=== PATIENT | male | born 1965 | race Caucasian/White ===

== ENCOUNTER 2023-05-22 10:54 | Day surgery (SDC) | payer MEDICAID ==
[2023-05-20 10:53] LABS: BILIRUBIN,URINE NEGATIVE (Neg); CLARITY,URINE CLEAR (Clear); COLOR,URINE YELLOW (Yellow); GLUCOSE, URINE NEGATIVE (Neg); KETONES,URINE NEGATIVE (Neg); LEUKOCYTE ESTERASE ,URINE NEGATIVE (Neg); NITRITES, URINE NEGATIVE (Neg); OCCULT BLOOD,URINE NEGATIVE (Neg); PH,URINE 5.5 (4.8-8.0); PROTEIN,URINE NEGATIVE (Neg); UROBILINOGEN,URINE 0.2 E.U/dL (0.2-1.0)
[2023-05-20 10:54] LABS: UA COLLECTION TYPE CLN CATCH MIDSTREAM
[2023-05-20 10:58] LABS: BASOPHILS # (AUTO) 0.1 X10'3 (0-0.2); EOSINOPHILS # (AUTO) 0.1 X10'3 (0-0.9); EOSINOPHILS % (AUTO) 1.3 % (0-6); LYMPHOCYTES # (AUTO) 1.4 X10'3 (1.1-4.8); LYMPHOCYTES % (AUTO) 23.5 % (21-51); MEAN CORPUSCULAR HEMOGLOBIN 30.6 PG (27.0-31.0); MEAN CORPUSCULAR HGB CONC 34.8 g/dL (33.0-36.5); MEAN CORPUSCULAR VOLUME 88.1 FL (78-98); MEAN PLATELET VOLUME 8.4 FL (7.4-10.4); MONOCYTES # (AUTO) 0.6 X10'3 (0-0.9); MONOCYTES % (AUTO) 9.7 % (2-12); NEUTROPHILS % (AUTO) 64.5 % (42-75); PRE OP HEMATOCRIT 49.2 % (42.0-52.0); PRE OP HEMOGLOBIN 17.1 g/dL (14.0-17.9); PRE OP PLATELET COUNT 180 X10'3 (140-440); PRE OP WHITE BLOOD COUNT 6.1 10'3 (4.8-10.8); RED BLOOD COUNT 5.58 X10'6 (4.70-6.10); RED CELL DISTRIBUTION WIDTH 13.7 % (11.5-14.5)
[2023-05-20 11:09] LABS: ALBUMIN 3.7 G/DL (3.4-5.0); ALBUMIN/GLOBULIN RATIO 1.1 (1.1-1.5); ALKALINE PHOSPHATASE 35 IU/L (46-116); BLOOD UREA NITROGEN 18 MG/DL (7-18); BUN/CREATININE RATIO 15.1 (10.0-20.0); CALCIUM 9.2 MG/DL (8.5-10.1); CHLORIDE 105 MMOL/L (99-107); CREATININE 1.19 MG/DL (0.60-1.10); PRE OP ALT 33 U/L (30-65); PRE OP ANION GAP 9 (8-16); PRE OP AST 19 U/L (10-37); PRE OP BILIRUB, TOTAL 0.5 MG/DL (0.0-1.0); PRE OP GLUCOSE 98 MG/DL (70-104); PRE OP POTASSIUM 4.2 MMOL/L (3.4-5.1); PRE OP SODIUM 141 MMOL/L (135-145); TOTAL CARBON DIOXIDE 27.3 MMOL/L (24-32); TOTAL PROTEIN 7.1 G/DL (6.4-8.2); eGFR 63 ML/MIN
[~2023-05-22] VITALS: Ht 190.5 cm; Wt 154.7 kg
[2023-05-22] VITALS (11 sets, daily range): BP systolic 118–165; BP diastolic 66–100; PULSE 60–81; RESP 11–18; TEMP 97.6; O2SAT 93–98
[~2023-05-22 10:54] MED LIST: ANAS1TAB10 PO; TEST200V33 IM; ceFAZolin inj. 3,000 MG in normal saline 100ml IV soln 100 ML IV ONE; famotidine 20mg tablet PO ONE; ringers solution, lacted 1,000 ML IV SCH
[2023-05-22] MEDS ORDERED: hydrALAZINE 20mg/ml inj. IV PRN (12:00)
[2023-05-22] MEDS ORDERED: morphine 2 MG/ML inj. syringe IV PRN (12:00)
[2023-05-22] MEDS ORDERED: ondansetron/PF 4mg/2ml inj IV PRN (12:00)
[2023-05-22] MEDS ORDERED: meperidine/PF 25mg/ml syringe IV PRN ×3 (12:00)
[2023-05-22] MEDS ORDERED: ketorolac trometh. 30mg/ml inj. IV ONE (12:00)
[2023-05-22] MEDS ORDERED: labetalol 20mg/4ml (5mg/ml) syringe IV PRN (12:00)
[2023-05-22] MEDS ORDERED: acetaminophen 1,000mg/100ml IV 100 ML IV PRN (12:00)
[2023-05-22] MEDS ORDERED: proCHLORperazine 10 MG/2 ml inj IV PRN (12:00)
[2023-05-22] MEDS ORDERED: ringers solution, lacted 1,000 ML IV SCH (12:00)
[2023-05-22] MEDS ORDERED: morphine 4 MG/ML inj SYRINge IV PRN (12:00)
[2023-05-22] MEDS ORDERED: BUPIVAcaine/PF 2.5 mg/ml (0.25%) 30ml vial ONE (14:01)
[2023-05-22] MEDS ORDERED: sevoflurane 250ml liquid IH ONE (14:15)
[2023-05-22] MEDS ORDERED: midazolam 1 mg/ML 2ml injection ONE (14:23)
[2023-05-22] MEDS ORDERED: fentaNYL /PF 50mcg/ml 5ml ampule ONE (14:24)
[2023-05-22] MEDS ORDERED: propofol inj 20 ML IV ONE ×2 (14:33)
[2023-05-22] MEDS ORDERED: rocuronium 10mg/ml inj IV ONE (14:33)
[2023-05-22] MEDS ORDERED: LIDOcaine 2% (20mg/ml) 5ml vial ONE (14:33)
[2023-05-22] MEDS ORDERED: dexamethasone sod phosphate 4mg/ml inj. ONE (14:34)
[2023-05-22] MEDS ORDERED: ondansetron/PF 4mg/2ml inj ONE (14:34)
[2023-05-22] MEDS ORDERED: BUPIVAcaine/PF 2.5 mg/ml (0.25%) 30ml vial IJ ONE (14:57)
[2023-05-22] MEDS ORDERED: neostigmine methylsulfate 1 MG/ML 10ml vial ONE (16:29)
[2023-05-22] MEDS ORDERED: glycopyrrolate 0.2mg/ml inj ONE (16:29)
[2023-05-22] MEDS ORDERED: albuterol 60 PUFF/8GM Inhaler (90mcg/1 puff) IH ONE (16:32)
--- NOTE | 2023-05-22 16:44 | NUR ---
Received from OR via , accompanied by Anesthesiologist DR PAYNE and report given by Anesthesiolgist.PT SLEEPING BUT WAKES TO VOICE, MOVING EXT X 4,3 LAP SITES WITH DERMABOND CD, PIV RIGHT HAND 20G WITH LR, MEDICATION GIVEN FOR PAIN, VSS
[2023-05-22] MEDS ORDERED: HYDROcodone/acetaminophen 5mg/325mg tablet PO ONE (17:30)
--- NOTE | 2023-05-22 18:14 | NUR ---
PT AWAKE, ALERT, UP TO DRESS AND VOID INDEPEN'LY, NORCO GIVEN PRIOR TO DISCHARGE, IV REMOVED, LAP SITES X 3 CD, TRE FLUIDS, PT MEETS DISCHARGE CRITERIA. TRANSPORTED TO CAR VIA W/C. PT SAFELY TRANSFERRED INTO CAR.
== END 2023-05-22 18:14 | disposition home or self-care (01) ==
LOC: PAS 10:54
PROVIDERS: ATTEND Surgery
DX: K40.90 Unilateral inguinal hernia, without obstruction or gangrene, not specified as recurrent (principal); G43.909 Migraine, unspecified, not intractable, without status migrainosus; E66.9 Obesity, unspecified; Z68.41 Body mass index [BMI] 40.0-44.9, adult; F17.220 Nicotine dependence, chewing tobacco, uncomplicated; Z87.442 Personal history of urinary calculi; Z79.899 Other long term (current) drug therapy
CPT/HCPCS: 36415; 49650; 80053; 81003; 82948; 85025; 93005; C1781; J0131; J0690; J1100; J1885; J2175; J2250; J2405; J2704; J2710; J3010; J3490; J7120; S2900; Z7506; Z7508; Z7512; A4215; A4618; C1758

== ENCOUNTER 2023-08-07 08:33 | Inpatient (IN) | payer MEDICAID ==
[2023-08-05 10:51] LABS: BILIRUBIN,URINE NEGATIVE (Neg); CLARITY,URINE CLEAR (Clear); COLOR,URINE YELLOW (Yellow); GLUCOSE, URINE NEGATIVE (Neg); KETONES,URINE NEGATIVE (Neg); LEUKOCYTE ESTERASE ,URINE NEGATIVE (Neg); NITRITES, URINE NEGATIVE (Neg); OCCULT BLOOD,URINE NEGATIVE (Neg); PROTEIN,URINE NEGATIVE (Neg); UROBILINOGEN,URINE 0.2 E.U/dL (0.2-1.0)
[2023-08-05 10:55] LABS: BASOPHILS % (AUTO) 0.9 % (0-1); EOSINOPHILS # (AUTO) 0.1 X10'3 (0-0.9); EOSINOPHILS % (AUTO) 1.7 % (0-6); LYMPHOCYTES # (AUTO) 1.2 X10'3 (1.1-4.8); MEAN CORPUSCULAR HEMOGLOBIN 30.1 PG (27.0-31.0); MEAN CORPUSCULAR HGB CONC 34.3 g/dL (33.0-36.5); MEAN CORPUSCULAR VOLUME 87.6 FL (78-98); MEAN PLATELET VOLUME 8.4 FL (7.4-10.4); MONOCYTES # (AUTO) 0.6 X10'3 (0-0.9); NEUTROPHILS # (AUTO) 3.4 X10'3 (1.8-7.7); NEUTROPHILS % (AUTO) 63.4 % (42-75); PRE OP HEMATOCRIT 49.2 % (42.0-52.0); PRE OP HEMOGLOBIN 16.9 g/dL (14.0-17.9); PRE OP PLATELET COUNT 184 X10'3 (140-440); PRE OP WHITE BLOOD COUNT 5.4 10'3 (4.8-10.8); RED BLOOD COUNT 5.62 X10'6 (4.70-6.10); RED CELL DISTRIBUTION WIDTH 14.2 % (11.5-14.5); UA COLLECTION TYPE CLN CATCH MIDSTREAM
[2023-08-05 11:11] LABS: ALBUMIN 3.9 G/DL (3.4-5.0); ALBUMIN/GLOBULIN RATIO 1.2 (1.1-1.5); ALKALINE PHOSPHATASE 45 IU/L (46-116); BLOOD UREA NITROGEN 15 MG/DL (7-18); BUN/CREATININE RATIO 12.7 (10.0-20.0); CALCIUM 9.3 MG/DL (8.5-10.1); CHLORIDE 101 MMOL/L (99-107); CREATININE 1.18 MG/DL (0.60-1.10); PRE OP ALT 32 U/L (30-65); PRE OP ANION GAP 6 (8-16); PRE OP AST 29 U/L (10-37); PRE OP BILIRUB, TOTAL 0.8 MG/DL (0.0-1.0); PRE OP GLUCOSE 98 MG/DL (70-104); PRE OP POTASSIUM 3.9 MMOL/L (3.4-5.1); PRE OP SODIUM 137 MMOL/L (135-145); TOTAL CARBON DIOXIDE 30.3 MMOL/L (24-32); TOTAL PROTEIN 7.2 G/DL (6.4-8.2); eGFR 64 ML/MIN
[2023-08-07] VITALS (29 sets, daily range): BP systolic 129–172; BP diastolic 69–117; PULSE 73–98; RESP 10–19; TEMP 98.3–98.9; O2SAT 91–100
[~2023-08-07] VITALS: Ht 190.5 cm; Wt 156.5 kg
[2023-08-07] MEDS ORDERED: BUPIVAcaine/PF 2.5mg/ml (0.25%) 10ml vial ONE ×2 (11:00→14:18)
[2023-08-07] MEDS ORDERED: BUPIVAcaine/PF 2.5 mg/ml (0.25%) 30ml vial IJ ONE (12:13)
[2023-08-07] MEDS ORDERED: neostigmine methylsulfate 1 MG/ML 10ml vial ONE (13:12)
[2023-08-07] MEDS ORDERED: LIDOcaine 2% (20mg/ml) 5ml vial ONE (13:12)
[2023-08-07] MEDS ORDERED: ketorolac trometh. 30mg/ml inj. ONE (13:12)
[2023-08-07] MEDS ORDERED: rocuronium 10mg/ml inj IV ONE ×2 (13:12→13:33)
[2023-08-07] MEDS ORDERED: sevoflurane 250ml liquid IH ONE (13:12)
[2023-08-07] MEDS ORDERED: glycopyrrolate 0.2mg/ml inj ONE (13:12)
[2023-08-07] MEDS ORDERED: ondansetron/PF 4mg/2ml inj ONE (13:12)
[2023-08-07] MEDS ORDERED: midazolam 1 mg/ML 2ml injection ONE (13:21)
[2023-08-07] MEDS ORDERED: fentaNYL /PF 50mcg/ml 5ml ampule ONE (13:22)
[2023-08-07] MEDS ORDERED: propofol inj 20 ML IV ONE (13:33)
[2023-08-07] MEDS ORDERED: dexamethasone sod phosphate 4mg/ml inj. ONE (13:37)
[2023-08-07] MEDS ORDERED: ePHEDrine 50MG/ML INJ. ONE (14:16)
[2023-08-07] MEDS ORDERED: morphine 10mg/ml inj. ONE (15:56)
[2023-08-07] MEDS ORDERED: sugammadex 200mg/2ml injection IV ONE (16:01)
[2023-08-07] MEDS ORDERED: morphine 2 MG/ML inj. syringe IV PRN (16:20)
[2023-08-07] MEDS ORDERED: ondansetron/PF 4mg/2ml inj IV PRN (16:20)
[2023-08-07] MEDS ORDERED: ringers solution, lacted 1,000 ML IV SCH ×2 (16:20→17:30)
[2023-08-07] MEDS ORDERED: meperidine/PF 25mg/ml syringe IV PRN ×3 (16:20)
[2023-08-07] MEDS ORDERED: enalaprilat dihydrate 2.5mg/2ml vial IV PRN (16:20)
[2023-08-07] MEDS ORDERED: labetalol 20mg/4ml (5mg/ml) syringe IV PRN (16:20)
[2023-08-07] MEDS ORDERED: proCHLORperazine 10 MG/2 ml inj IV PRN (16:20)
[2023-08-07] MEDS ORDERED: morphine 4 MG/ML inj SYRINge IV PRN (16:20)
[2023-08-07] MEDS ORDERED: acetaminophen 1,000mg/100ml IV 100 ML IV ONE (16:24)
--- NOTE | 2023-08-07 17:16 | NUR ---
Received from OR via honey, accompanied by Anesthesiologist and report given by Varsha Anesthesiologist. PATIENT waking up, DENIES PAIN, V/S WNL, SCD ON , PIV 20G Right wrist, DERMABONDED 4 LAPS SITES CLOSED CDI TO ABDOMEN. Right scrotum dermabonded CDI. Addendum: 08/07/23 at 1729 by Dylan Ford RN Amended: Links added.
[2023-08-07] MEDS ORDERED: naloxone 0.4 mg/ml inj IV PRN (17:30)
[2023-08-07] MEDS: HYDROmorph/NS 0.2 mg/ml PCA 100 ML IV SCH ×4 (18:21→23:00)
--- NOTE | 2023-08-07 19:42 | NUR ---
PATIENT HAS MET ALL CRITERIA FOR TRANSFER TO ORTHO FLOOR. VSS. DRESSINGS INTACT. BED LOW, CALL LIGHT PRESENT AND 2 RAILS UP. RN PRESENT TO ACCEPT CARE OF PATIENT AND REPORT HAS BEEN CALLED. ALL QUESTIONS ANSWERED TO ACCEPTING RN. Addendum: 08/07/23 at 2002 by Dylan Ford RN Amended: Links added.
--- NOTE | 2023-08-07 20:00 | NUR ---
RECIEVED PT FROM RECOVERY ROOM VIA [facility] AND TRANSFERRED TO BED AND MADE HIM COMFORTABLE.
[2023-08-08 00:30] VITALS: BP 129/77
[2023-08-08] MEDS: HYDROmorph/NS 0.2 mg/ml PCA 100 ML IV SCH ×6 (01:00→11:00)
[2023-08-08 02:00] VITALS: BP 136/79; PULSE 111; TEMP 98.4; O2SAT 94
[2023-08-08 04:30] VITALS: BP 137/80
[2023-08-08 06:00] VITALS: BP 137/87; PULSE 103; RESP 17; TEMP 98.3; O2SAT 97
--- NOTE | 2023-08-08 06:45 | NUR ---
Problems reprioritized. Patient report given, questions answered & plan of care reviewed with SAI MENON.
--- NOTE | 2023-08-08 06:50 | NUR ---
Patient in room ORTHO 4023. I have received report from Noreen and had the opportunity to ask questions and assume patient care.
[2023-08-08 08:00] VITALS: RESP 17; O2SAT 97
[2023-08-08 10:00] VITALS: BP 152/86; PULSE 95; RESP 18; TEMP 97.6; O2SAT 97
--- NOTE | 2023-08-08 11:00 | NUR ---
Patient discharged home today. Son at bedside and participated in the discharge. All discharge instructions were explained and all questions were answered. IV removed and canula intact. Patient a&ox4 and dressed himself. Patient was wheeled downstairs and helped into private vehicle. Patient left the facility with son.
--- NOTE | 2023-08-08 11:43 | NUR ---
school librarian dilaudid waste witnessed by Kimberly RN at 1142. waste of 90ml dilaudid
[2023-08-08] MEDS ORDERED: PCA WASTE DOCUMENTATION 1 MG ML MC SCH (11:50)
--- NOTE | 2023-08-08 11:51 | NUR ---
EMPLOYMENT COORDINATOR documentation: I have reviewed and agree with all interventions, assessments performed and documented by Leti GIBBS. patient reported passing flatus and tolerating diet
--- NOTE | 2023-08-08 11:51 | NUR ---
SAI Medication Administration: For this medication-pass time frame, all medication were reviewed, dispensed, administered and documented per hospital policy by Leti GIBBS.
== END 2023-08-08 11:25 | disposition home or self-care (01) | DRG 228 ==
LOC: PAS 08:33 → ORTHO 4S 17:35
PROVIDERS: ADMIT Surgery; ATTEND Surgery
PROC: 0YU50JZ Supplement Right Inguinal Region with Synthetic Substitute, Open Approach (ICD-10-PCS; principal; 2023-08-07 13:12)
DX: K40.91 Unilateral inguinal hernia, without obstruction or gangrene, recurrent (principal); D17.9 Benign lipomatous neoplasm, unspecified
CPT/HCPCS: 36415; 80053; 81003; 82948; 85025; A4215; A4615; A4618; C1758; C1781; G0378; J0131; J0690; J1100; J1170; J1885; J2250; J2274; J2405; J2704; J2710; J3010; J3490; J7120